=== PATIENT | male | born 1995 | race Caucasian/White ===

== ENCOUNTER 2023-04-19 22:26 | Emergency (ER) | payer SELFPAY ==
[2023-04-19 23:30] LABS: INFLUENZA A NAA NEGATIVE (NEGATIVE); INFLUENZA B NAA NEGATIVE (NEGATIVE); RESPIRATORY SYNCYTIAL VIR NAA NEGATIVE (NEGATIVE)
[2023-04-19 23:32] LABS: CORONAVIRUS COVID-19 NAA NEGATIVE (NEGATIVE)
[2023-04-19] MEDS ORDERED: Azithromycin 250 MG Tab ONE (23:45)
== END 2023-04-19 23:56 | disposition home or self-care (01) ==
LOC: LB.ED 22:26
DX: J06.9 Acute upper respiratory infection, unspecified (principal); F17.210 Nicotine dependence, cigarettes, uncomplicated; Z79.899 Other long term (current) drug therapy; Z20.822 Contact with and (suspected) exposure to COVID-19
CPT/HCPCS: 0241U; 99282; 99283; A9270-GY

== ENCOUNTER 2023-06-20 10:02 | Emergency (ER) | payer SELFPAY ==
[2023-06-20] MEDS: Sodium Chloride 0.9% 500 ML IV ONE (11:21)
[2023-06-20 11:28] LABS: BASOPHILS ABSOLUTE AUTO 0.01 K/uL (0.02-0.10); BASOPHILS PERCENT AUTO 0.1 % (0.0-0.5); EOSINOPHILS ABSOLUTE AUTO 0.26 K/uL (0.04-0.40); HEMATOCRIT 41.4 % (40.0-54.0); HEMOGLOBIN 14.6 g/dL (13.0-18.0); LYMPHOCYTES ABSOLUTE AUTO 1.28 K/uL (1.50-4.00); LYMPHOCYTES PERCENT AUTO 14.9 % (20.0-40.0); MEAN CORPUSCULAR HEMOGLOBIN 31.6 pg (27.0-32.0); MEAN CORPUSCULAR HGB CONC 35.3 g/dL (31.0-35.0); MEAN CORPUSCULAR VOLUME 90 fL (76-96); MONOCYTES PERCENT AUTO 5.8 % (3.0-10.0); NEUTROPHILS ABSOLUTE AUTO 6.52 K/uL (2.00-7.50); NEUTROPHILS PERCENT AUTO 76.2 % (45.0-70.0); PLATELET COUNT,PLT 183 K/uL (150-400); RED BLOOD CELL COUNT 4.62 M/uL (4.50-6.50); WHITE BLOOD CELL COUNT,WBC 8.6 K/uL (4.0-11.0)
[2023-06-20 11:53] LABS: A/G RATIO 1.1 (0.8-2.0); ALBUMIN 4.4 g/dL (3.4-5.0); ANION GAP 16.2 mmol/L (5.0-15.0); BILIRUBIN TOTAL 0.7 mg/dL (0.0-1.0); CALCIUM 8.9 mg/dL (8.5-10.1); CARBON DIOXIDE,CO2 24.3 mmol/L (21.0-32.0); CREATININE 1.18 mg/dL (0.70-1.30); EST CRCL DRUG DOSING (CG) 90.17 mL/min; MAGNESIUM 1.9 mg/dL (1.8-2.4); POTASSIUM,K 3.5 mmol/L (3.5-5.1); PROTEIN TOTAL,TP 8.3 g/dL (6.4-8.2)
[2023-06-20] MEDS: HYDROmorphone 2 MG/ML Syringe IVPUSH ONE ×3 (11:57→14:36)
[2023-06-20] MEDS: Lidocaine 1% with EPINEPHrine 1:100,000 20 ML MDV INJECT ONE (12:05)
[2023-06-20] MEDS: HYDROmorphone 2 MG/ML Syringe ONE ×2 (13:32→14:42)
[2023-06-20 13:53] LABS: APPEARANCE,URINE CLEAR (CLEAR); BILIRUBIN,URINE NEGATIVE (NEGATIVE); COLOR,URINE YELLOW; GLUCOSE,URINE NEGATIVE (NEGATIVE); KETONES,URINE 15 mg/dL (NEGATIVE); LEUKOCYTE ESTERASE,URINE NEGATIVE (NEGATIVE); NITRITE,URINE NEGATIVE (NEGATIVE); OCCULT BLOOD,URINE NEGATIVE (NEGATIVE); PH,URINE 5.5 (5.0-8.0); PROTEIN,URINE TRACE mg/dL (NEGATIVE); UROBILINOGEN,URINE 0.2 E.U./dL (0.2-1.0)
[2023-06-20 13:57] LABS: EPITHELIAL CELLS,URINE OCCASIONAL /HPF; RBC,URINE NOT SEEN /HPF; WBC,URINE 0-5 /HPF
[2023-06-20 14:18] VITALS: BP 125/83; PULSE 77
== END 2023-06-20 14:42 | disposition home or self-care (01) ==
LOC: LB.ED 10:02
DX: S42.251A Displaced fracture of greater tuberosity of right humerus, initial encounter for closed fracture (principal); S01.511A Laceration without foreign body of lip, initial encounter; G40.409 Other generalized epilepsy and epileptic syndromes, not intractable, without status epilepticus; W18.30XA Fall on same level, unspecified, initial encounter
CPT/HCPCS: 12011; 36415; 70450; 70486; 73020-RT; 73030-RT; 80053; 80307; 81001; 83735; 84100; 85025; 96374; 96376; 99285-25; J1170; J7040

== ENCOUNTER 2023-06-22 22:05 | Emergency (ER) | payer SELFPAY ==
[2023-06-22] MEDS: Ketorolac 60 MG/2 ML SDV IM ONE (22:37)
[2023-06-22] MEDS: Ketorolac 60 MG/2 ML SDV ONE (22:39)
[2023-06-22] MEDS: Morphine 10 MG/ML SDV IVPUSH ONE (22:50)
[2023-06-22] MEDS: Cyclobenzaprine 10 MG Tab PO SCH (22:50)
[2023-06-22] MEDS ORDERED: traMADol 50 MG Tab ONE (23:00)
[2023-06-22] MEDS: Cyclobenzaprine 10 MG Tab ONE (23:09)
[2023-06-22] MEDS: Morphine 10 MG/ML SDV ONE (23:13)
== END 2023-06-22 23:25 | disposition home or self-care (01) ==
LOC: LB.ED 22:05
DX: S42.254A Nondisplaced fracture of greater tuberosity of right humerus, initial encounter for closed fracture (principal); S43.014A Anterior dislocation of right humerus, initial encounter; F17.210 Nicotine dependence, cigarettes, uncomplicated; W18.30XA Fall on same level, unspecified, initial encounter
CPT/HCPCS: 23665; 73020-RT; 73030-RT; 96372; 99283-25; A9270-GY; J1885; J2270